=== PATIENT | female | born 2000 | race Two or more races ===

== ENCOUNTER 2023-02-04 14:38 | Emergency (ER) | payer OTHER ==
[~2023-02-04] VITALS: Ht 167.6 cm; Wt 61.5 kg
[2023-02-04 15:25] LABS: Urine Bacteria FEW /hpf (None Seen); Urine Blood TRACE /uL (Negative); Urine Clarity Clear (Clear); Urine Color Yellow (Yellow); Urine Mucus FEW (None Seen); Urine Protein, UAD Negative (Negative); Urine Specific Gravity 1.021 (1.001-1.035); Urine Urobilinogen Normal (Negative); Urine WBC 1 /hpf (0 - 5)
[2023-02-04] MEDS ORDERED: SODIUM CHLORIDE 0.9% 500 ML IVB ONE (15:30)
[2023-02-04] MEDS ORDERED: PANTOPRAZOLE 40 MG/10 ML VIAL INJ IV ONE (15:30)
[2023-02-04 15:39] LABS: Basophils # (auto) 0 10 ^3/uL (0-0.2); Basophils % (auto) 0.1 % (0.0-2.0); Eosinophils # (auto) 0.1 10 ^3/uL (0-0.8); Hematocrit 43.5 % (36.0-46.0); Hemoglobin 14.4 g/dL (12.2-16.2); Lymphocytes # (auto) 2.4 10 ^3/uL (0.4-5.4); Lymphocytes % (auto) 16.9 % (10.0-50.0); Mean Corpuscular Hemoglobin 30.7 pg (28.0-32.0); Mean Corpuscular Hgb Conc. 33.1 g/dL (32.0-36.0); Mean Corpuscular Volume 92.7 fL (80.0-100.0); Monocytes # (auto) 0.7 10 ^3/uL (0-1.3); Monocytes % (auto) 4.8 % (0.0-12.0); Neutrophils # (auto) 10.8 10 ^3/uL (1.6-8.6); Neutrophils % (auto) 77.2 % (37.0-80.0); Red Cell Distribution Width 12.3 % (11.8-14.3)
[2023-02-04 16:00] LABS: Albumin 4.9 g/dL (3.2-4.8); Alkaline Phosphatase 76 U/L (46-116); Anion Gap 5.3 (5-15); Aspartate Aminotransferase 10 U/L (13-40); Bilirubin, Total 1.4 mg/dL (0.2-1.0); Calcium 9.2 mg/dL (8.5-10.1); Carbon Dioxide 25.7 mmol/L (20-30); Chloride 108 mmol/L (98-107); Glucose 94 mg/dL (74-106); Potassium 3.6 mmol/L (3.5-5.1); Sodium 139 mmol/L (136-145); Total Protein 7.7 g/dL (5.7-8.2)
[2023-02-04 16:05] LABS: Alanine Aminotransferase < 9 U/L (7-40); BUN/Creatinine Ratio 6.3 (10.0-20.0); Blood Urea Nitrogen < 5 mg/dL (9-23)
[2023-02-04 17:17] LABS: Lipase 44 U/L (12-53)
[2023-02-04] MEDS ORDERED: ZOFR4T PO (20:26)
[2023-02-04] MEDS ORDERED: PANT40TA2 PO (20:26)
[2023-02-04 22:30] VITALS: BP 122/80; PULSE 107; RESP 18; TEMP 98.2; O2SAT 98
== END 2023-02-04 22:33 | disposition home or self-care (01) ==
LOC: ER 14:38
DX: K29.00 Acute gastritis without bleeding (principal)
CPT/HCPCS: 36415; 74176; 76705; 80053; 81001; 81025; 83690; 85025; 96374; 99285; C9113; J7040

== ENCOUNTER 2024-09-09 09:56 | Inpatient (IN) | payer OTHER ==
[~2024-09-09] VITALS: Ht 167.6 cm; Wt 63.8 kg
[~2024-09-09 09:56] MED LIST: PANT40TA2 PO; ZOFR4T PO
--- NOTE | 2024-09-09 10:42 | ED.PDOC ---
GI ASSESSMENT HPI Comments 24 y/o F, presents to the ED for CC of abdominal pain. Patient states, that she has been experiencing periumbilical abdominal pain that radiates to her right side since Saturday (09/06/24). Patient relays, that symptoms worsened today with new onset symptoms of nausea and diarrhea starting today (09/09/24). Patient endorses, being seen at Urgent Care today (09/09/24) and being told she had a UTI based on her UA; patient relayed to ED for ultrasound due to pain radiating to right side. Patient comments on current 11/03 abdominal pain. Patient denies fever, chills, vomiting, frequency, hematuria, or dysuria. No other symptoms or modifying factors present at this time. Chief Complaint: Abdominal Pain Time Seen by MD: 10:25 Primary Care Provider: NONE Reviewed Notes: Nurses Notes, Medications, Allergies Allergies: Coded Allergies: NO KNOWN ALLERGIES (Unverified , 02/04/23) Home Meds Active Scripts Ondansetron Odt 4MG Tab (ZOFRAN PO) 4 Mg Tb, 4 MG PO Q6HP PRN for 5 Days, #20 TAB ODT TAB-DISSOLVE IN MOUTH, THEN SWALLOW Prov:ANASTASIA GARCIA MD 02/04/23 Pantoprazole Sodium Sesquihydr (Protonix) 40 Mg Tab, 40 MG PO DAILY, #30 TAB Prov:ANASTASIA GARCIA MD 02/04/23 Information Source: Patient Mode of Arrival: Ambulatory Timing: Days Duration: Since onset Prehospital treatment: None Quality: None Vomitus: None Stool: Watery Recent: None Recent Hx of: None Pain Location: Periumbilical Modifying Factors: Nothing Associated sign and symptoms: Nausea, Diarrhea Past Medical History PAST MEDICAL HISTORY: Denies Surgical History: Denies all surgeries STEEL BUFFER History: No Pertinent STEEL BUFFER History Family History Family History: Reviewed,noncontributory to illness, Family hx of DM, Family hx of Cancer Social History Smoker: Other Alcohol: Occasionally Drugs: Denies Drug Use Lives In: Home Constitutional: denies: chills, diaphoresis, fatigue, fever, malaise, sweats, weakness, others EENTM: denies: blurred vision, double vision, ear bleeding, ear discharge, ear drainage, ear pain, ear ringing, eye pain, eye redness, hearing loss, mouth pain, mouth swelling, nasal discharge, nose bleeding, nose congestion, nose pain, photophobia, tearing, throat pain, throat swelling, voice changes, others Respiratory: denies: cough, hemoptysis, orthopnea, SOB at rest, shortness of breath, SOB with excertion, stridor, wheezing, others Cardiovascular: denies: chest pain, dizzy spells, diaphoresis, Dyspnea on exertion, edema, irregular heart beat, left arm pain, lightheadedness, palpitations, PND, syncope, others Gastrointestinal: reports: abdominal pain, diarrhea, nausea; denies: abdomen distended, blood streaked bowels, constipated, dysphagia, difficulty swallowing, hematemesis, melena, poor appetite, poor fluid intake, rectal bleeding, rectal pain, vomiting, others Genitourinary: denies: abnormal vagina bleeding, burning, dyspareunia, dysuria, flank pain, frequency, hematuria, incontinence, pain, , vagina discharge, urgency, others Neurological: denies: dizziness, fainting, headache, left sided numbness, left sided weakness, numbness, paresthesia, pre-existing deficit, right sided numbness, right sided weakness, seizure, speech problems, tingling, tremors, weakness, others Musculoskeletal: denies: back pain, gout, joint pain, joint swelling, muscle pain, muscle stiffness, neck pain, others Integumetry: denies: bruises, change in color, change in hair/nails, dryness, laceration, lesions, lumps, rash, wounds, others Allergic/Immunocompromised: denies: Difficulty Healing, Frequent Infections, Hives, Itching, others Hematologic/Lymphatic: denies: anemia, blood clots, easy bleeding, easy bruising, swollen glands, others Endocrine: denies: excessive hunger, excessive sweating, excessive thirst, excessive urination, flushing, intolerance to cold, intolerance to heat, unexplained weight gain, unexplained weight loss, others Psychiatric: denies: anxiety, bipolar disorder, depression, hopeless, panic disorder, schizophrenia, sleepless, suicidal, others All Other Systems: Reviewed and Negative Physical Exam General Appearance: Moderate Distress HEENT: Normal ENT Inspection, Pharynx Normal, TMs Normal Neck: Full Range of Motion, Non-Tender, Normal, Normal Inspection Respiratory: Chest Non-Tender, Lungs Clear, No Accessory Muscle Use, No Respiratory Distress, Normal Breath Sounds Cardiovascular: No Edema, No JVD, No Murmur, No Gallop, Normal Peripheral Pulses, Regular Rate/Rhythm Breast Exam: Deferred Gastrointestinal: No Organomegaly, No Pulsatile Mass, Normal Bowel Sounds, RLQ, Soft, Tenderness Genitalia: Deferred Pelvic: Deferred Rectal: Deferred Extremities: No calf tenderness, Normal capillary refill, Normal inspection, Normal range of motion, Non-tender, No pedal edema Musculoskeletal : Apperance: Normal Neurologic: Alert, scullion chief II-XII nml as Tested, Motor Weakness, Normal Affect, Normal Mood, No Sensory Deficits Cerebellar Function: Normal Reflexes: Normal Skin: Dry, Normal Color, Warm Lymphatic: No Adenopathy Was a procedure done? Was a procedure done?: No GI differential Dx Differential Diagnosis: Appendicitis, Gastritis/PUD, Gastroenteritis, Electrolyte Imbalance, Food Poisoning, Bacterial, Viral X-Ray, Labs, Meds, VS Vital Signs Date Time Temp Pulse Resp B/P (MAP) Pulse Ox O2 Delivery O2 Flow Rate FiO2 09/09/24 14:06 84 16 132/88 (103) 100 09/09/24 13:41 71 19 96 Room Air* 0 21 09/09/24 12:27 99.3 97 18 122/92 (102) 100 99.3 09/09/24 10:06 98.3 110 16 140/71 (94) 99 98.3 Lab Test 09/09/24 10:34 09/09/24 10:10 Range/Units White Blood Count 9.3 4.4-10.8 10^3/uL Red Blood Count 4.53 4.0-5.20 10^6/uL Hemoglobin 14.5 12.2-16.2 g/dL Hematocrit 42.5 36.0-46.0 % Mean Corpuscular Volume 93.7 80.0-100.0 fL Mean Corpuscular Hemoglobin 31.9 28.0-32.0 pg Mean Corpuscular Hemoglobin Concent 34.1 32.0-36.0 g/dL Red Cell Distribution Width 12.2 11.8-14.3 % Platelet Count 291 140-450 10^3/uL Mean Platelet Volume 7.1 6.9-10.8 fL Neutrophils (%) (Auto) 66.9 37.0-80.0 % Lymphocytes (%) (Auto) 23.4 10.0-50.0 % Monocytes (%) (Auto) 7.4 0.0-12.0 % Eosinophils (%) (Auto) 2.0 0.0-7.0 % Basophils (%) (Auto) 0.3 0.0-2.0 % Neutrophils # (Auto) 6.2 1.6-8.6 10 ^3/uL Lymphocytes # (Auto) 2.2 0.4-5.4 10 ^3/uL Monocytes # (Auto) 0.7 0-1.3 10 ^3/uL Eosinophils # (Auto) 0.2 0-0.8 10 ^3/uL Basophils # (Auto) 0 0-0.2 10 ^3/uL Nucleated Red Blood Cells 0.0 % Sodium Level 139 136-145 mmol/L Potassium Level 3.8 3.5-5.1 mmol/L Chloride Level 104 98-107 mmol/L Carbon Dioxide Level 25 20-31 mmol/L Anion Gap 10 5-15 Blood Urea Nitrogen 7 L 9-23 mg/dL Creatinine 0.79 0.550-1.02 mg/dL Glomerular Filtration Rate Calc 108 >90 mL/min BUN/Creatinine Ratio 8.9 L 10.0-20.0 Serum Glucose 92 74-106 mg/dL Calcium Level 9.8 8.7-10.4 mg/dL Urine Color Yellow Yellow Urine Clarity Turbid H Clear Urine pH 6.0 5.0-9.0 Urine Specific [place] 1.032 1.001-1.035 Urine Protein Trace H Negative Urine Ketones Trace Negative Urine Blood Trace H Negative /uL Urine Nitrite Negative Negative Urine Bilirubin Negative Negative Urine Urobilinogen Normal Negative mg/dL Urine Leukocyte Esterase Trace Negative /uL Urine RBC None seen 0 - 4 /hpf Urine Microscopic WBC 6 H 0-5 /HPF Urine Squamous Epithelial Cells Many <5 /hpf Urine Bacteria Few H None Seen /hpf Urine Mucus Few None Seen Urine Glucose Normal Normal mg/dL Urine Test Negative Negative Current Medications Medications (Trade) Dose Ordered Sig/Latricia Route Start Time Stop Time Status Last Admin Sodium Chloride 1,000 ml @ 1,000 mls/hr Q1H ONCE IVB 09/09/24 10:30 09/09/24 11:29 DC 09/09/24 13:40 IV Hep-Lock was established The patient was given a 1 L bolus of normal saline The patient's CBC is within normal limits The urine test is negative The test is negative The CAT scan of the abdomen and pelvis shows: IMPRESSION: 1. Abnormality of the cecum. Wall thickening with adjacent stranding. Appendix appears nondilated with some enhancement of the wall. Consider infectious/inflammatory colitis. An underlying colonic mass is not entirely excluded. Clinical correlation and continued follow-up is recommended. Consider colonoscopy after acute event. The patient was given Flagyl 500 mg IV piggyback The patient was being admitted at this time. Images Reviewed?: Images reviewed and evaluated by me Time of 1ST Reevaluation: 11:05 Reevaluation 1ST: Unchanged Patient Education/Counseling: Diagnosis, Treatment, Prognosis Family Education/Counseling: No Family Present Departure 1 Departure Time of Disposition: 16:03 Impression: Primary Impression: Intractable abdominal pain Additional Impression: Acute colitis Disposition: ADMITTED INPATIENT Admit to: Med Surg Condition: Fair Critical Care Note Critical Care Time?: No Stability Stability form required: Yes Unstable for transfer: ED Physician Assesment (Clinical assesment) Heart Score Heart Score: Heart Score Response (Comments) Value History N/A 0 EKG N/A 0 Age N/A 0 Risk Factors N/A 0 Troponin N/A 0 Total 0 I personally scribed for ANASTASIA GARCIA MD ([email or web address]) on 09/09/24 at 10:42. Electronically submitted by Earnestine Robins ([email or web address]). ANASTASIA GARCIA MD Sep 09, 2024 10:42
[2024-09-09 11:05] LABS: Basophils # (auto) 0 10 ^3/uL (0-0.2); Basophils % (auto) 0.3 % (0.0-2.0); Eosinophils # (auto) 0.2 10 ^3/uL (0-0.8); Hematocrit 42.5 % (36.0-46.0); Hemoglobin 14.5 g/dL (12.2-16.2); Lymphocytes # (auto) 2.2 10 ^3/uL (0.4-5.4); Lymphocytes % (auto) 23.4 % (10.0-50.0); Mean Corpuscular Hemoglobin 31.9 pg (28.0-32.0); Mean Corpuscular Hgb Conc. 34.1 g/dL (32.0-36.0); Mean Corpuscular Volume 93.7 fL (80.0-100.0); Monocytes # (auto) 0.7 10 ^3/uL (0-1.3); Monocytes % (auto) 7.4 % (0.0-12.0); Neutrophils # (auto) 6.2 10 ^3/uL (1.6-8.6); Neutrophils % (auto) 66.9 % (37.0-80.0); Platelet Count (auto) 291 10^3/uL (140-450); Red Blood Cells 4.53 10^6/uL (4.0-5.20); Red Cell Distribution Width 12.2 % (11.8-14.3); White Blood Cell 9.3 10^3/uL (4.4-10.8)
[2024-09-09 11:07] LABS: Chloride 104 mmol/L (98-107); Potassium 3.8 mmol/L (3.5-5.1); Sodium 139 mmol/L (136-145)
[2024-09-09 11:08] LABS: Anion Gap 10 (5-15); Calcium 9.8 mg/dL (8.7-10.4); Carbon Dioxide 25 mmol/L (20-31)
[2024-09-09 11:13] LABS: BUN/Creatinine Ratio 8.9 (10.0-20.0); Glucose 92 mg/dL (74-106)
[2024-09-09 11:15] LABS: Urine Bacteria FEW /hpf (None Seen); Urine Blood TRACE /uL (Negative); Urine Clarity Turbid (Clear); Urine Color Yellow (Yellow); Urine Mucus FEW (None Seen); Urine Protein, UAD TRACE (Negative); Urine Specific Gravity 1.032 (1.001-1.035); Urine Squamous Epithelial Cell MANY /hpf (<5); Urine Urobilinogen Normal (Negative); Urine WBC 6 /HPF (0-5)
[2024-09-09 11:18] LABS: Blood Urea Nitrogen 7 mg/dL (9-23)
[2024-09-09] MEDS: IOHEXOL 300 MG/ML 100ML BOTTLE IJ ONE (11:48)
[2024-09-09] MEDS: SODIUM CHLORIDE 0.9% 1,000 ML IVB ONE (13:40)
[2024-09-09 13:41] VITALS: PULSE 71; RESP 19; O2SAT 96
--- NOTE | 2024-09-09 15:05 | DVH ---
Exam: CT CT AB PEL WITH IV CON ONLY History: pain COMPARISON: None Technique: Multidetector spiral CT of the abdomen and pelvis was performed from lung bases to pubic symphysis. Intravenous contrast was administered during this examination. Portal venous imaging was obtained. Axial, coronal and sagittal multiplanar reformats were performed by the technologist on a separate workstation. Radiation Dose : Abdomen/Pelvis: CTDIvol 5 mGy, DLP 287 mGy*cm. CONTRAST: Type of contrast: Omni 300 Contrast injected: 100 mL Findings: Lung Bases: No acute or significant lung base finding. Normal heart size. No pleural or pericardial effusion. Liver: The liver is normal in size. No focal lesions. Normal hepatic vascular enhancement. Gallbladder and biliary Tree: Unremarkable Spleen: Unremarkable Pancreas: The pancreas is normal in appearance without focal lesions or abnormal enhancement. Adrenal Glands: Unremarkable Kidneys: No hydronephrosis. Bladder: Unremarkable Bowel: The stomach is grossly normal in appearance. Small bowel and colon are normal in caliber and d istribution. There is wall thickening of the cecum. The appendix is visualized and nondilated. There is some enhancement of the wall of the appendix. There is some minimal stranding around the cecum. Ascites: Absent Lymphadenopathy: No mesenteric, retroperitoneal or periportal lymphadenopathy. Abdominal wall and Mesentery: Unremarkable. Vasculature: The visualized abdominal aorta is normal in size and caliber. Abdominal and pelvic vess els demonstrate normal enhancement. Pelvic Organs: Unremarkable Musculoskeletal: No aggressive focal bony lesions, acute fractures or dislocation. IMPRESSION: 1. Abnormality of the cecum. Wall thickening with adjacent stranding. Appendix appears nondilated wi th some enhancement of the wall. Consider infectious/inflammatory colitis. An underlying colonic mas s is not entirely excluded. Clinical correlation and continued follow-up is recommended. Consider col onoscopy after acute event. Radiation optimization: All CT scans at this facility use at least one of these dose optimization sweetie hniques: Automated exposure control mA and/or kV adjustment per patient size (includes targeted exams where dose is matched to clinical indication) or iterative reconstruction. HS:Y
[2024-09-09] MEDS ORDERED: ONDANSETRON HCL 4 MG/2 ML VIAL IV PRN (19:30)
[2024-09-09] MEDS ORDERED: ACETAMINOPHEN 325 MG TAB PO PRN (19:30)
--- NOTE | 2024-09-09 20:47 | DVHHP2 ---
History of Present Illness Reason for Visit: Abdominal pain History of Present Illness 24-year-old female presents for evaluation of abdominal pain. Patient reports a three day history of epigastric pain as sharp in nature that is nonradiating to her umbilical area. She reports episodes of nausea with watery diarrhea. Denies fever or chills. No recent weight loss. No other acute complaints reported. Past Medical History Denies Past Surgical History Denies Family History Noncontributory Smoke: No ALCOHOL: occassional Drugs: None Lives: with Family Review of Systems Review of Systems Review of systems are currently negative otherwise addressed in HPI. Allergies: Coded Allergies: NO KNOWN ALLERGIES (Unverified , 02/04/23) Medications Current Medications Medications Dose Ordered Sig/Latricia Route Start Time Stop Time Status Last Admin Dose Admin Metronidazole 100 ml @ 100 mls/hr Q8H IV 09/10/24 00:00 Acetaminophen/ Hydrocodone Bitart 1 tab Q4HP PRN PO 09/09/24 19:30 Ondansetron HCl 4 mg Q4HP PRN IV 09/09/24 19:30 Acetaminophen 650 mg Q6HP PRN PO 09/09/24 19:30 Exam Vital Signs Vital Signs Date Time Temp Pulse Resp B/P (MAP) Pulse Ox O2 Delivery O2 Flow Rate FiO2 09/09/24 14:06 84 16 132/88 (103) 100 09/09/24 13:41 Room Air* 0 21 09/09/24 12:27 99.3 99.3 Exam Gen: 24-year-old female in mild distress. Skin: Warm, dry, normal color and texture, no rash. HEENT: Normocephalic atraumatic, mucous membranes moist and pink. Neck: Cervical and supraclavicular nodes normal without enlargement, trachea is midline, thyroid gland is normal without masses. Pulmonary: Clear to auscultation and percussion bilaterally. Cardiac: Regular rate and rhythm. No murmur Abdomen: Soft, epigastric tenderness, nondistended, bowel sounds present all 4 quadrants, no guarding, no rigidity, no organomegaly. Extremities: No cyanosis, clubbing, no edema Neuro: Cranial nerves II through XII grossly intact, normal affect and speech, no focal motor deficits. Labs/Xrays ORDERING PHYSICIAN: ANASTASIA GARCIA MD PROCEDURE(s): ABPLIV - CT AB PEL WITH IV CON ONLY REASON: pain ORDER NUMBER(s): [id number], ACCESSION NUMBER(s): [id number] Exam: CT CT AB PEL WITH IV CON ONLY History: pain COMPARISON: None Technique: Multidetector spiral CT of the abdomen and pelvis was performed from lung bases to pubic symphysis. Intravenous contrast was administered during this examination. Portal venous imaging was obtained. Axial, coronal and sagittal multiplanar reformats were performed by the technologist on a separate workstation. Radiation Dose : Abdomen/Pelvis: CTDIvol 5 mGy, DLP 287 mGy*cm. CONTRAST: Type of contrast: Omni 300 Contrast injected: 100 mL Findings: Lung Bases: No acute or significant lung base finding. Normal heart size. No pleural or pericardial effusion. Liver: The liver is normal in size. No focal lesions. Normal hepatic vascular enhancement. Gallbladder and biliary Tree: Unremarkable Spleen: Unremarkable Pancreas: The pancreas is normal in appearance without focal lesions or abnormal enhancement. Adrenal Glands: Unremarkable Kidneys: No hydronephrosis. Bladder: Unremarkable Bowel: The stomach is grossly normal in appearance. Small bowel and colon are normal in caliber and distribution. There is wall thickening of the cecum. The appendix is visualized and nondilated. There is some enhancement of the wall of the appendix. There is some minimal stranding around the cecum. Ascites: Absent Lymphadenopathy: No mesenteric, retroperitoneal or periportal lymphadenopathy. Abdominal wall and Mesentery: Unremarkable. Vasculature: The visualized abdominal aorta is normal in size and caliber. Abdominal and pelvic vessels demonstrate normal enhancement. Pelvic Organs: Unremarkable Musculoskeletal: No aggressive focal bony lesions, acute fractures or dislocation. IMPRESSION: 1. Abnormality of the cecum. Wall thickening with adjacent stranding. Appendix appears nondilated with some enhancement of the wall. Consider infectious/inflammatory colitis. An underlying colonic mass is not entirely excluded. Clinical correlation and continued follow-up is recommended. Consider colonoscopy after acute event. Radiation optimization: All CT scans at this facility use at least one of these dose optimization techniques: Automated exposure control mA and/or kV adjustment per patient size (includes targeted exams where dose is matched to clinical indication) or iterative reconstruction. HS:Y Labs Test 09/09/24 10:34 09/09/24 10:10 Range/Units White Blood Count 9.3 4.4-10.8 10^3/uL Red Blood Count 4.53 4.0-5.20 10^6/uL Hemoglobin 14.5 12.2-16.2 g/dL Hematocrit 42.5 36.0-46.0 % Mean Corpuscular Volume 93.7 80.0-100.0 fL Mean Corpuscular Hemoglobin 31.9 28.0-32.0 pg Mean Corpuscular Hemoglobin Concent 34.1 32.0-36.0 g/dL Red Cell Distribution Width 12.2 11.8-14.3 % Platelet Count 291 140-450 10^3/uL Mean Platelet Volume 7.1 6.9-10.8 fL Neutrophils (%) (Auto) 66.9 37.0-80.0 % Lymphocytes (%) (Auto) 23.4 10.0-50.0 % Monocytes (%) (Auto) 7.4 0.0-12.0 % Eosinophils (%) (Auto) 2.0 0.0-7.0 % Basophils (%) (Auto) 0.3 0.0-2.0 % Neutrophils # (Auto) 6.2 1.6-8.6 10 ^3/uL Lymphocytes # (Auto) 2.2 0.4-5.4 10 ^3/uL Monocytes # (Auto) 0.7 0-1.3 10 ^3/uL Eosinophils # (Auto) 0.2 0-0.8 10 ^3/uL Basophils # (Auto) 0 0-0.2 10 ^3/uL Nucleated Red Blood Cells 0.0 % Sodium Level 139 136-145 mmol/L Potassium Level 3.8 3.5-5.1 mmol/L Chloride Level 104 98-107 mmol/L Carbon Dioxide Level 25 20-31 mmol/L Anion Gap 10 5-15 Blood Urea Nitrogen 7 L 9-23 mg/dL Creatinine 0.79 0.550-1.02 mg/dL Glomerular Filtration Rate Calc 108 >90 mL/min BUN/Creatinine Ratio 8.9 L 10.0-20.0 Serum Glucose 92 74-106 mg/dL Calcium Level 9.8 8.7-10.4 mg/dL Urine Color Yellow Yellow Urine Clarity Turbid H Clear Urine pH 6.0 5.0-9.0 Urine Specific [place] 1.032 1.001-1.035 Urine Protein Trace H Negative Urine Ketones Trace Negative Urine Blood Trace H Negative /uL Urine Nitrite Negative Negative Urine Bilirubin Negative Negative Urine Urobilinogen Normal Negative mg/dL Urine Leukocyte Esterase Trace Negative /uL Urine RBC None seen 0 - 4 /hpf Urine Microscopic WBC 6 H 0-5 /HPF Urine Squamous Epithelial Cells Many <5 /hpf Urine Bacteria Few H None Seen /hpf Urine Mucus Few None Seen Urine Glucose Normal Normal mg/dL Urine Test Negative Negative Assessment/Plan Assessment/Plan Assessment Acute abdominal pain Colitis versus colonic mass Plan Admit the patient to [facility] surge to the hospitalist GI consult Clear liquid diet Pain management Flagyl Continue treatment per orders. Plan discussed with: Patient My Orders Orders - TRAMAINE ROSARIO Procedure Category Date Status Time * Gi Dvh Diet Attendant CONS 09/09/24 Transmitted 19:21 Stool Bacterial KATHLEEN 09/09/24 Logged Culture 19:21 Clostridium Difficile KATHELEN 09/09/24 Logged Toxin 19:21 Basic Metabolic Panel LAB 09/10/24 Verified 04:00 Admit ADMIT 09/09/24 Transmitted 19:21 Hydrocodone-Acet PHA 09/09/24 In Process 5/325mg Tab ([place] 19:30 Ondansetron Hcl PHA 09/09/24 In Process (Zofran) 19:30 Complete Blood Count LAB 09/10/24 Verified 04:00 Condition: Stable CORY 09/09/24 In Process 19:21 Acetaminophen Tablet PHA 09/09/24 In Process (Tylenol Tablet) 19:30 Clear Liq Diet DIET 09/10/24 Transmitted Breakfast Bedrest With Bathroom CORY 09/09/24 In Process Privileg 19:21 Metronidazole PHA 09/10/24 In Process 500mg/100ml (Flagyl 00:00 Date of Service: Sep 09, 2024 Billing Provider: TRAMAINE ROSARIO Common Visit Codes: [id number] INP/OBS CARE (HIGH) TRAMAINE ROSARIO Sep 09, 2024 20:47
[2024-09-09] MEDS: HYDROcodone-ACET 5/325MG TAB PO PRN (22:41)
[2024-09-09] MEDS: metroNIDAZOLE 500MG/100ML 100 ML IV ONE (22:42)
[2024-09-10] MEDS: metroNIDAZOLE 500MG/100ML 100 ML IV SCH
[2024-09-10 01:17] VITALS: BP 113/72; PULSE 72; RESP 16; TEMP 97.9; O2SAT 100
[2024-09-10 05:00] VITALS: BP 100/60; PULSE 76; RESP 16; TEMP 97.9; O2SAT 100
[2024-09-10 08:22] LABS: Basophils # (auto) 0 10 ^3/uL (0-0.2); Basophils % (auto) 0.3 % (0.0-2.0); Eosinophils # (auto) 0.1 10 ^3/uL (0-0.8); Eosinophils % (auto) 1.7 % (0.0-7.0); Hematocrit 40.7 % (36.0-46.0); Hemoglobin 13.4 g/dL (12.2-16.2); Lymphocytes % (auto) 24.7 % (10.0-50.0); Mean Corpuscular Hemoglobin 30.7 pg (28.0-32.0); Mean Corpuscular Hgb Conc. 32.9 g/dL (32.0-36.0); Mean Corpuscular Volume 93.5 fL (80.0-100.0); Monocytes # (auto) 0.7 10 ^3/uL (0-1.3); Monocytes % (auto) 8.5 % (0.0-12.0); Neutrophils # (auto) 5.3 10 ^3/uL (1.6-8.6); Neutrophils % (auto) 64.8 % (37.0-80.0); Nucleated Red Blood Cells % 0.1 %; Platelet Count (auto) 253 10^3/uL (140-450); Red Blood Cells 4.35 10^6/uL (4.0-5.20); Red Cell Distribution Width 12.1 % (11.8-14.3); White Blood Cell 8.2 10^3/uL (4.4-10.8)
[2024-09-10 08:28] LABS: Calcium 9.7 mg/dL (8.7-10.4); Chloride 103 mmol/L (98-107); Potassium 3.8 mmol/L (3.5-5.1); Sodium 138 mmol/L (136-145)
[2024-09-10 08:29] LABS: Anion Gap 13 (5-15); Carbon Dioxide 22 mmol/L (20-31)
[2024-09-10 08:30] VITALS: BP 102/62; PULSE 87; RESP 17; TEMP 98; O2SAT 100
[2024-09-10 08:34] LABS: BUN/Creatinine Ratio 11.4 (10.0-20.0)
[2024-09-10 08:37] LABS: Blood Urea Nitrogen 8 mg/dL (9-23); Glucose 68 mg/dL (74-106)
[2024-09-10 13:13] VITALS: BP 93/55; PULSE 66; RESP 17; TEMP 97.8; O2SAT 99
[2024-09-10] MEDS: cefTRIAXone 1GM/50ML D5W 50 ML IV SCH (14:52)
--- NOTE | 2024-09-10 15:01 | DVHPN2 ---
Subjective Patient continues to report having abdominal pain. Reviewed: Care Plan, H&P, Labs, Medications Changes from previous H/P or p: No Changes General: Per HPI Objective Vitals Vital Signs Date Time Temp Pulse Resp B/P (MAP) Pulse Ox O2 Delivery O2 Flow Rate FiO2 09/10/24 13:13 97.8 66 17 93/55 (68) 99 97.8 09/10/24 08:00 Room Air* 0 21 Intake/Output Intake and Output 09/10/24 07:00 Intake Total 100 ml Balance 100 ml Intake IV Total 100 ml General Appearance: Alert, Oriented X3, Cooperative HEENT: Atraumatic, PERRLA Lungs: Clear to auscultation, Normal air movement Cardiovascular: Normal S1, Normal S2 Abdomen: Normal bowel sounds, Soft, No tenderness, No hepatospenomegaly Back: Flank Tenderness, Midline Tenderness Musculoskeletal: Normal sensory function, Normal motor function Neuro: Normal gait, Normal speech Psych/Mental Status: Mental status NL, Mood NL Medications Current Medications Medications Dose Ordered Sig/Latricia Route Start Time Stop Time Status Last Admin Dose Admin Metronidazole 100 ml @ 100 mls/hr Q8H IV 09/10/24 00:00 09/10/24 08:36 100 MLS/HR Acetaminophen/ Hydrocodone Bitart 1 tab Q4HP PRN PO 09/09/24 19:30 09/10/24 08:07 1 TAB Ondansetron HCl 4 mg Q4HP PRN IV 09/09/24 19:30 Acetaminophen 650 mg Q6HP PRN PO 09/09/24 19:30 Ceftriaxone Sodium 50 ml @ 100 mls/hr DAILY@09 IV 09/10/24 14:15 09/10/24 14:52 100 MLS/HR Laboratory Results Laboratory Tests 09/10/24 07:25 Chemistry Test 09/10/24 07:25 Calcium Level 9.7 mg/dL (8.7-10.4) Urinalysis Test 09/09/24 10:10 Urine Color Yellow (Yellow) Urine Clarity Turbid (Clear) H Urine pH 6.0 (5.0-9.0) Urine Specific [place] 1.032 (1.001-1.035) Urine Protein Trace (Negative) H Urine Ketones Trace (Negative) Urine Blood Trace /uL (Negative) H Urine Nitrite Negative (Negative) Urine Bilirubin Negative (Negative) Urine Urobilinogen Normal mg/dL (Negative) Urine Leukocyte Esterase Trace /uL (Negative) Urine RBC None seen /hpf (0 - 4) Urine Microscopic WBC 6 /HPF (0-5) H Urine Squamous Epithelial Cells Many /hpf (<5) Urine Bacteria Few /hpf (None Seen) H Urine Mucus Few (None Seen) Urine Glucose Normal mg/dL (Normal) Urine Test Negative (Negative) Labs and/or images reviewed: Labs reviewed by me, Image(s) reviewed by me Assessment/Plan Assessment/Plan Impression: -acute colitis -hypoglycemia Plan: -continue Flagyl, add Rocephin -advance diet as tolerated -reassess for discharge in a.m. -pain management Total time spent with patient discussing and formulating plan of care: 35 minutes. This medical document was created using an electronic medical record system with [employer] dictation system. Although this document has been carefully reviewed, there may still be some phonetic and typographical errors. These areas are purely typographical due to imperfections of the software programs, and do not reflect any compromise in the patient's medical care. Plan discussed with: Patient, Other (RN) My Orders Orders - AIDEN MELENDEZ NP Procedure Category Date Status Time Ceftriaxone 1gm/50ml PHA 09/10/24 In Process D5w (Rocephin) 14:15 Full Liq Diet DIET 09/10/24 Transmitted Dinner Advance Diet As CORY 09/10/24 Transmitted Tolerated 14:57 Date of Service: Sep 10, 2024 Billing Provider: AIDEN MELENDEZ NP Common Visit Codes: [id number] INP/OBS CARE(HIGH) AIDEN MELENDEZ NP Sep 10, 2024 15:01
[2024-09-10 17:00] VITALS: BP 92/61; PULSE 77; RESP 17; TEMP 98; O2SAT 100
[2024-09-10 22:58] VITALS: BP 98/62; PULSE 68; RESP 18; TEMP 97.7; O2SAT 97
[2024-09-11] VITALS: PULSE 79; RESP 19; TEMP 97.7; O2SAT 95
[2024-09-11 05:00] VITALS: BP 95/65; PULSE 84; RESP 19; TEMP 97.5; O2SAT 97
[2024-09-11 08:00] VITALS: BP 101/62; PULSE 87; RESP 18; TEMP 98.6; O2SAT 100; O2SAT 98
[2024-09-11] MEDS ORDERED: METR-344 PO (13:53)
[2024-09-11] MEDS ORDERED: LEVO500T91 PO (13:53)
--- NOTE | 2024-09-11 13:59 | DVHDS2 ---
Discharge Summary Date of Admission Sep 09, 2024 at 19:21 Date of Discharge: Sep 11, 2024 Admitting Diagnosis Acute abdominal pain Labs/Diagnostic Data: Laboratory Results Test 09/10/24 07:25 09/09/24 10:10 White Blood Count 8.2 10^3/uL (4.4-10.8) Red Blood Count 4.35 10^6/uL (4.0-5.20) Hemoglobin 13.4 g/dL (12.2-16.2) Hematocrit 40.7 % (36.0-46.0) Mean Corpuscular Volume 93.5 fL (80.0-100.0) Mean Corpuscular Hemoglobin 30.7 pg (28.0-32.0) Mean Corpuscular Hemoglobin Concent 32.9 g/dL (32.0-36.0) Red Cell Distribution Width 12.1 % (11.8-14.3) Platelet Count 253 10^3/uL (140-450) Mean Platelet Volume 7.5 fL (6.9-10.8) Neutrophils (%) (Auto) 64.8 % (37.0-80.0) Lymphocytes (%) (Auto) 24.7 % (10.0-50.0) Monocytes (%) (Auto) 8.5 % (0.0-12.0) Eosinophils (%) (Auto) 1.7 % (0.0-7.0) Basophils (%) (Auto) 0.3 % (0.0-2.0) Neutrophils # (Auto) 5.3 10 ^3/uL (1.6-8.6) Lymphocytes # (Auto) 2.0 10 ^3/uL (0.4-5.4) Monocytes # (Auto) 0.7 10 ^3/uL (0-1.3) Eosinophils # (Auto) 0.1 10 ^3/uL (0-0.8) Basophils # (Auto) 0 10 ^3/uL (0-0.2) Nucleated Red Blood Cells 0.1 % Sodium Level 138 mmol/L (136-145) Potassium Level 3.8 mmol/L (3.5-5.1) Chloride Level 103 mmol/L (98-107) Carbon Dioxide Level 22 mmol/L (20-31) Anion Gap 13 (5-15) Blood Urea Nitrogen 8 mg/dL (9-23) Creatinine 0.70 mg/dL (0.550-1.02) Glomerular Filtration Rate Calc 125 mL/min (>90) BUN/Creatinine Ratio 11.4 (10.0-20.0) Serum Glucose 68 mg/dL (74-106) Calcium Level 9.7 mg/dL (8.7-10.4) Urine Color Yellow (Yellow) Urine Clarity Turbid (Clear) Urine pH 6.0 (5.0-9.0) Urine Specific [place] 1.032 (1.001-1.035) Urine Protein Trace (Negative) Urine Ketones Trace (Negative) Urine Blood Trace /uL (Negative) Urine Nitrite Negative (Negative) Urine Bilirubin Negative (Negative) Urine Urobilinogen Normal mg/dL (Negative) Urine Leukocyte Esterase Trace /uL (Negative) Urine RBC None seen /hpf (0 - 4) Urine Microscopic WBC 6 /HPF (0-5) Urine Squamous Epithelial Cells Many /hpf (<5) Urine Bacteria Few /hpf (None Seen) Urine Mucus Few (None Seen) Urine Glucose Normal mg/dL (Normal) Urine Test Negative (Negative) Other Laboratory Tests 09/10/24 07:25 Brief Hx & Hospital Course: History of Present Illness 24-year-old female presents for evaluation of abdominal pain. Patient reports a three day history of epigastric pain as sharp in nature that is nonradiating to her umbilical area. She reports episodes of nausea with watery diarrhea. Denies fever or chills. No recent weight loss. No other acute complaints reported Course of hospitalization: CT scan of the abdomen and pelvis reveals colitis in the cecal area. Patient denies having any bloody stool, reports having some diarrhea, with the pain improving. Patient was able to tolerate full liquid diet. Patient was negative for Rovsing obturator sign, with the patient was likely having appendicitis. She was able to ambulate. Patient will be discharged home with antibiotic therapy: Levaquin 500 mg p.o. daily x7 days and Flagyl 500 mg p.o. t.i.d. x7 days she will follow up with the discharge Clinic in one week. All questions answered. Physical examination General: Alert and Oriented x3. No acute distress. Well-nourished. Eyes: EOMI. Anicteric. HENT: Moist mucous membranes. Lungs: Clear to auscultation bilaterally. No accessory muscle use. Cardiovascular: Regular rate and rhythm. No murmur. No JVD. Abdomen: Soft, non-tender and non-distended. No palpable masses. Extremities: No edema. Non-tender. Skin: No rashes or lesions. Warm. Neurologic: No focal neurological deficits. CN II-XII grossly intact, but not individually tested. Psychiatric: Cooperative. Appropriate mood and affect. Total time spent with patient discussing and formulating plan of care: 35 minutes. This medical document was created using an electronic medical record system with [employer] dictation system. Although this document has been carefully reviewed, there may still be some phonetic and typographical errors. These areas are purely typographical due to imperfections of the software programs, and do not reflect any compromise in the patient's medical care. Condition at Discharge: Fair Final Diagnosis/Problems List Acute colitis Discharge Disposition: Home Discharge Instruct/Medications Diet: Regular Activity: No Restrictions, As Tolerated Follow Up/Referral: Follow up with discharge Clinic in one week Medications: Flagyl 500 mg p.o. t.i.d. x7 days Levaquin 500 mg p.o. daily x7 days 36 Discharge Statement: "Patient was advised to return to the ER or call 911 if any headaches, dizziness, shortness of breath, chest pain, abdominal pain, bleeding, fevers, or worsening of medical condition. Patient was counseled about treatment plan, medications, possible side effects, patientverbalized understanding. All questions were answered to the best of my ability. This discharge took greater then 30 minutes in planning, reviewing documentation, counseling the patient, and discussing with other team members." ASSESSMENT ASSESSMENT Assessment Acute colitis Date of Service: Sep 11, 2024 Billing Provider: AIDEN MELENDEZ NP Common Visit Codes: 11071-EVB/OBS DISCH DAY >30min AIDEN MELENDEZ NP Sep 11, 2024 13:59
== END 2024-09-11 15:00 | disposition home or self-care (01) | DRG 392 ==
LOC: ER 09:56 → OVERFLOW 19:21 → EAST 09-10 22:58
PROVIDERS: ADMIT Nurse Practitioner Acute Care; ATTEND Nurse Practitioner Acute Care
DX: K52.9 Noninfective gastroenteritis and colitis, unspecified (principal); K37 Unspecified appendicitis; E16.2 Hypoglycemia, unspecified; F17.200 Nicotine dependence, unspecified, uncomplicated
CPT/HCPCS: 36415; 74177; 80048; 81001; 81025; 85025; 96360; G0378; J3490